=== PATIENT | female | born 2000 | race American Indian/Alaskan Native ===

== ENCOUNTER 2023-06-22 03:18 | Inpatient (IN) | payer MEDICAID ==
[2023-06-22] VITALS (42 sets, daily range): BP systolic 100–137; BP diastolic 54–90; PULSE 64–112; TEMP 97.9–98.7
[~2023-06-22] VITALS: Ht 167.6 cm; Wt 98.2 kg
[~2023-06-22 03:18] MED LIST: CEPHALEXIN500 M1 PO
[2023-06-22] MEDS ORDERED: LR 1,000 ML IV PRN ×2 (03:45→11:15)
--- NOTE | 2023-06-22 04:00 | NUR ---
UNABLE TO ASSESS PT CONTRACTIONS ON TOCO DUE TO PT MOVEMENT/POSITIONING. PT REPORTS CTX ABOUT EVERY 1.5-3 MIN.
[2023-06-22] MEDS ORDERED: PRENATAL MVI PO (04:02)
[2023-06-22] MEDS ORDERED: TYLENOL 325MG325 MG PO (04:03)
--- NOTE | 2023-06-22 04:04 | NUR ---
0325: ARRIVED TO LR VIA WHEELCHAIR ACCOMPANIED BY SIG OTHER AND STAFF. PT ORINTED TO ROOM AND CHANGED INTO GOWN. PT STATES BEEN HAVING CONTRACTIONS SINCE 2300 06/21/23. STATES SHE HAS BEEN TIMING THEM ON AN MATTHEW AND THEY HAVE BEEN 2-4 MIN APART. PT STATES SHE LOST HER MUCUS PLUG BUT DENIES LOF/VAG BLEEDING. ENDORSES MOVEMENT. PT REQUESTING LABOR BALL TO USE WHILE COMPLETING LABOR CHECK. 0330: ROULA BY RN: /-
[2023-06-22] MEDS ORDERED: LR & Oxytocin 500 ML IV SCH (04:45)
[2023-06-22] MEDS ORDERED: LR 1,000 ML IV SCH (04:45)
[2023-06-22] MEDS ORDERED: Penicillin G Potassium 5,000,000 UNITS in NS 100 ML IV ONE (04:45)
--- NOTE | 2023-06-22 05:00 | NUR ---
DIFFICULTY TRACING FHR AND CTX DUE TO PATIENT POSITIONING/MOVEMENT. PT CONTINUES TO REPORT CONTRACTIONS EVERY 1.5-3 MIN. PT DECLINES REPOSITIONING OF FHM DUE TO DISCOMFORT LEVEL.
[2023-06-22] MEDS ORDERED: ROPivacaine PF 0.2% 200 ML IV ONE (05:07)
[2023-06-22 05:12] LABS: BASO % 0.2 % (0.0-2.0); EOS % 0.2 % (0.0-4.0); GRAN # 9.4 K/mm3 (1.4-6.5); GRAN % 72.5 % (42.2-75.2); HEMOGLOBIN 11.7 g/dl (12.5-16.0); LYMPH # 2.3 K/mm3 (1.2-3.4); LYMPH % 17.8 % (20.0-51.0); MEAN CELL VOLUME 86 fl (80.0-100.0); MEAN CORPUSCULAR HEMOGLOBIN 29 pg (27-31); MEAN CORPUSCULAR HGB CONC 33 g/dl (33.0-37.0); MEAN PLATELET VOLUME 9.2 fl (7.4-10.4); MONO # 1.1 K/mm3 (0.1-0.6); MONO % 8.7 % (1.7-9.3); PLATELET COUNT 415 K/mm3 (130-400)
[2023-06-22 05:15] LABS: HEMATOCRIT 35.1 % (37.0-47.0)
--- NOTE | 2023-06-22 05:19 | NUR ---
0509: PT POSITIONED ON SIDE OF BED WITH SUPPORT FROM RN FOR EPIDURAL PLACEMENT. Betsy OLIVARES CRNA AT BEDSIDE FOR EPIDURAL PLACMENT. IVF BOLUS STARTED 0510: TIME OUT FOR EPIDURAL PLACEMENT 0518: EPIDURAL CATH PLACED BY Betsy OLIVARES CRNA 0519: EPIDURAL TEST DOSE BY Betsy OLIVARES CRNA 0523: PT REPOSIONED LOW JENKINS WITH LEFT TILT. FHR MONITORS ADJUSTED. 0529: EPIDURAL PUMP STARTED BY Betsy OLIVARES CRNA. PT EDUCATED ON LUTE PACKER OR APPLIER BOLUS BUTTON BY MARIANO. FALL RISK EDUCATION BY RN. PT AND SIG OTHER VERBALIZE UNDERSTANDING OF STRICT BEDREST.
--- NOTE | 2023-06-22 05:30 | NUR ---
DIFFICULTY TRACING FHR DUE TO PT POSITIONING DURING EPIDURAL PLACMENT
[2023-06-22] MEDS ORDERED: diphenhydrAMINE 50 MG/ML 1 ML VIAL IV PRN (05:45)
[2023-06-22] MEDS ORDERED: Naloxone 0.4 MG/ML VIAL IV PRN ×2 (05:45→11:15)
[2023-06-22] MEDS ORDERED: ePHEDrine 50 MG/10 ML VIAL IV PRN (05:45)
[2023-06-22] MEDS ORDERED: diphenhydrAMINE 25 MG CAP PO PRN (05:45)
[2023-06-22] MEDS ORDERED: Ondansetron 4 MG/2 ML VIAL IV PRN ×2 (05:45→11:15)
--- NOTE | 2023-06-22 06:15 | NUR ---
DIFFICULTY TRACING CTX VIA TOCO DUE TO PT MOVEMENT.
[2023-06-22] MEDS ORDERED: NS 10 ML IV ONE (06:21)
[2023-06-22] MEDS ORDERED: Penicillin G Potassium 2,500,000 UNITS in NS 100 ML IV SCH (08:35)
[2023-06-22] MEDS ORDERED: Measles/Mumps/Rubella Virus Vaccine Live w Diluent 0.5 ML VIAL SQ SCH (11:15)
[2023-06-22] MEDS ORDERED: Magnes Hydrox (MOM) 80 MG/ML 30 ML CUP PO PRN (11:15)
[2023-06-22] MEDS ORDERED: Loratadine 10 MG TAB PO PRN (11:15)
[2023-06-22] MEDS ORDERED: oxyCODONE/Acetaminophen 5-325 MG TAB PO PRN (11:15)
[2023-06-22] MEDS ORDERED: NS 30 ML IV ONE (11:33)
[2023-06-22] MEDS ORDERED: Oxytocin 10 UNITS/ML VIAL ONE (11:33)
[2023-06-22] MEDS ORDERED: Ketorolac 30 MG/ML VIAL ONE (11:33)
[2023-06-22] MEDS ORDERED: Ondansetron 4 MG/2 ML VIAL ONE (11:33)
[2023-06-22] MEDS ORDERED: dexAMETHasone 10 MG/ML VIAL ONE (11:33)
[2023-06-22] MEDS ORDERED: Phenylephrine 10 MG/ML VIAL ONE (11:35)
[2023-06-22] MEDS ORDERED: EPINEPHrine 1 MG/1 ML Ampule ONE (11:35)
--- NOTE | 2023-06-22 13:04 | NUR ---
PATIENT MAKING GOOD CERVICAL CHANGE THROUGHOUT THE MORNING , AT [address] CARRASCO AT BEDSIDE AND NOTIFIED. AFTER SEVERAL ATTEMPTS TO POSITION CHANGE INTO HANDS AND KNEES, RIGHT AND LEFT STIRRUP AND WITH PEANUT BALL PATIENT STILL A 9/90/0 WITH A THICK ANTERIOR LIP THAT WAS SWELLING. PATIENT GIVEN BENADRYL AT 0855. AT 1000 PATIENT STILL A 9/90/0 WITH A SWOLLEN ANTERIOR CERVIX. DR PAPPAS CALLED FOR A C SECION. PATIENT IN PAIN. BRYON HERE TO PLACE SPINAL AT BEDSIDE. EPIDURAL REMOVED AT 1010 AND SPINAL PERFORMED AT BEDSIDE. PATIENT GOT GOOD RELIEF. PATIENT CLIPPED, PREPPED, AND ROLLED INTO OR AT 1025. HEART TONES IN OR 125-135. PATIENT TOLERATED C SECTION WELL. A LIVE FEMALE BORN AT 1035. BABY TO WARMER THEN SKIN TO SKIN WITH PATIENT. QBL FROM OR 420CC. TAP BLOCK PERFORMED. PATIENT TO BED AND TO PACU AT 1115. PATIENT TO RECOVERY AT 1200. WILL CONTINUE TO MONITOR
[2023-06-22] MEDS ORDERED: Sennosides/Docusate 8.6-50 MG TAB PO SCH (17:00)
[2023-06-22] MEDS ORDERED: Ibuprofen 800 MG TAB PO SCH (17:14)
[2023-06-22] MEDS ORDERED: traZODone 50 MG TAB PO PRN (21:00)
--- NOTE | 2023-06-22 21:45 | NUR ---
Patient assisted to bathroom by this RN. Pt able to void 700 mL. Pericare explained and provided. Clean gown on. Mesh panties and peripad on. Updated pts primary nurse.
[2023-06-23 01:40] VITALS: BP 115/68; PULSE 73; TEMP 97.5
[2023-06-23 05:25] VITALS: BP 105/83; PULSE 84; TEMP 97.9
[2023-06-23 07:15] VITALS: BP 124/57; PULSE 74; TEMP 98
[2023-06-23] MEDS ORDERED: PERCOCET 325 MG1 TA2 PO (10:03)
[2023-06-23] MEDS ORDERED: IBU800 M1 PO (10:03)
--- NOTE | 2023-06-23 10:06 | NUR ---
Initial visit; Parents thanked Press Brake Operator for offering congratulations and God's blessings for the of their daughter. Press Brake Operator thanked family for choosing our hospital and if they decide they would like [facility] just to call nurse and she will contact Press Brake Operator.
[2023-06-23 17:15] VITALS: BP 130/70; PULSE 90; TEMP 98.2
[2023-06-23 21:05] VITALS: BP 125/74; PULSE 80; TEMP 98
[2023-06-24 07:45] VITALS: BP 119/79; PULSE 78; TEMP 97.6
--- NOTE | 2023-06-24 07:45 | NUR ---
Rests in bed, alert. Holds baby lovingly. States breast fed baby at 0545 for fifteen minutes. Denies any pain or discomfort at this time.
[2023-06-24 15:30] VITALS: BP 130/65; PULSE 94; TEMP 98
--- NOTE | 2023-06-24 15:36 | NUR ---
Rests in bed, alert. Percocet 5/325 mg one given per request and as ordered.
[2023-06-24 19:00] VITALS: BP 102/84; PULSE 88; TEMP 98.6
[2023-06-25 08:22] VITALS: BP 121/71; PULSE 87; TEMP 98
[2023-06-25 16:00] VITALS: BP 121/64; PULSE 87; TEMP 98
== END 2023-06-25 17:20 | disposition home or self-care (01) | DRG 788 ==
LOC: LDRO 03:18 → LDR 03:41 → LDRO 04:37 → OB 04:38 → LDR 04:38 → OB 13:00
PROVIDERS: Obstetrics & Gynecology; ADMIT Student in an Organized Health Care Education/Training Program
PROC: 10D00Z1 Extraction of Products of Conception, Low, Open Approach (ICD-10-PCS; principal; 2023-06-22)
DX: O60.14X0 Preterm labor third trimester with preterm delivery third trimester, not applicable or unspecified (principal); Z37.0 Single live birth; O62.0 Primary inadequate contractions; O77.0 Labor and delivery complicated by meconium in amniotic fluid; O35.8XX0 Maternal care for other (suspected) fetal abnormality and damage, not applicable or unspecified; Z3A.36 36 weeks gestation of pregnancy; Z28.39 Other underimmunization status
CPT/HCPCS: J0171; J0665; J0690; J1100; J1200; J1885; J2371; J2405; J2540; J2590; J2795; J7120